=== PATIENT | female | born 1955 | race African-American/Black ===

== ENCOUNTER 2021-11-20 15:45 | Emergency (ER) | payer MEDICARE, OTHER ==
[~2021-11-20] VITALS: Ht 175.3 cm; Wt 81.0 kg
[2021-11-20 16:08] VITALS: BP 137/91
[2021-11-20] MEDS ORDERED: ACETAMINOPHEN 325MG TABLET PO ONE (21:30)
[2021-11-20 23:16] LABS: BASOPHILS % 0.5 % (0.0-2.0); EOSINOPHILS % 1.2 % (0.0-5.0); HEMATOCRIT. 36.3 % (36.0-48.0); HEMOGLOBIN. 11.6 g/dL (12.0-16.0); LYMPHOCYTES % 31.6 % (20.0-50.0); MEAN CORPUSCULAR HEMOGLOBIN 25.5 pg (28.0-32.0); MEAN CORPUSCULAR VOLUME 79.9 fL (81.0-99.0); MEAN PLATELET VOLUME 7.2 fl (7.4-10.4); MONOCYTES % 8.4 % (2.0-8.0); NEUTROPHILS % 58.3 % (40.0-76.0); PLATELET 270 x1000/uL (130-400); RED BLOOD CELL COUNT 4.54 mill/uL (4.2-5.4); RED CELL DISTRIBUTION WIDTH 14.8 % (11.6-14.6)
[2021-11-21] MEDS ORDERED: T3 PO (00:26)
[2021-11-21] MEDS ORDERED: INSULIN LISPRO 100 UNITS/ML SUBCUT ONE (00:30)
[2021-11-21] MEDS ORDERED: BACITRACIN ZINC OINT UDPKT TOP ONE (01:15)
== END 2021-11-21 01:24 | disposition home or self-care (01) ==
LOC: ER 15:45
DX: M79.604 Pain in right leg (principal); R60.0 Localized edema; E11.65 Type 2 diabetes mellitus with hyperglycemia; Z98.890 Other specified postprocedural states
CPT/HCPCS: 36415; 73630; 80048; 82962; 85025; 93971; 96372; 99285; J1815

== ENCOUNTER 2022-04-29 09:27 | Emergency (ER) | payer MEDICARE, MEDICAID ==
[~2022-04-29] VITALS: Ht 180.3 cm; Wt 85.0 kg
[~2022-04-29 09:27] MED LIST: T3 PO
[2022-04-29 09:38] VITALS: BP 123/86
[2022-04-29] MEDS ORDERED: TRAM50TA3 MT (12:08)
== END 2022-04-29 13:11 | disposition home or self-care (01) ==
LOC: ER 09:27
DX: L97.519 Non-pressure chronic ulcer of other part of right foot with unspecified severity (principal); E11.9 Type 2 diabetes mellitus without complications; I10 Essential (primary) hypertension; Z90.49 Acquired absence of other specified parts of digestive tract; Z79.899 Other long term (current) drug therapy
CPT/HCPCS: 81025; 82962; 99282

== ENCOUNTER 2024-09-06 06:49 | Emergency (ER) | payer MEDICARE, MEDICAID ==
[~2024-09-06] VITALS: Ht 180.3 cm; Wt 85.2 kg
[~2024-09-06 06:49] MED LIST changes: +AMLO5TAB88 PO; +GABA-529 PO; +LANTUSUD SUBCUT; +MECL-217 PO; +PANT40TA51 PO; +TRAM50TA3 MT
[2024-09-06 06:51] VITALS: O2SAT 100
[2024-09-06 06:57] VITALS: BP 154/105; PULSE 92; RESP 16; TEMP 36.8; O2SAT 98
[2024-09-06] MEDS: MECLIZINE 25MG TABLET PO ONE (07:52)
[2024-09-06] MEDS: BACITRACIN 14GM TUBE TOP ONE (07:53)
[2024-09-06] MEDS ORDERED: BO1 TP (09:33)
== END 2024-09-06 10:59 | disposition home or self-care (01) ==
LOC: ER 06:49
DX: S20.319A Abrasion of unspecified front wall of thorax, initial encounter (principal); E11.9 Type 2 diabetes mellitus without complications; Z88.6 Allergy status to analgesic agent; Z79.899 Other long term (current) drug therapy; Z98.890 Other specified postprocedural states; X58.XXXA Exposure to other specified factors, initial encounter; Y93.89 Activity, other specified; Y92.89 Other specified places as the place of occurrence of the external cause; Y99.8 Other external cause status
CPT/HCPCS: 99283; J8597; 99282

== ENCOUNTER 2025-02-22 16:42 | Inpatient (IN) | payer MEDICARE, MEDICAID ==
[~2025-02-22] VITALS: Ht 180.3 cm; Wt 90.3 kg
[~2025-02-22 16:42] MED LIST changes: +BO1 TP
[2025-02-22 16:45] VITALS: O2SAT 98
[2025-02-22] MEDS ORDERED: VANCOMYCIN 1000MG/250ML 250 ML IV SCH (18:15)
[2025-02-22] MEDS: PIPERACILLIN/TAZO 3.375G/50ML 50 ML IV SCH (18:41)
[2025-02-22] MEDS: SODIUM CHLORIDE 0.9% 1,000 ML IV ONE (18:42)
[2025-02-22] MEDS: KETOROLAC 15MG/ML VIAL IV ONE (18:42)
[2025-02-22] MEDS: VANCOMYCIN 1GM/200ML PMX (BAXTER) IV SCH (19:10)
[2025-02-22] MEDS ORDERED: TRAMADOL 50MG TABLET PO PRN (20:15)
[2025-02-22] MEDS ORDERED: MAGNESIUM/ALUMINUM HYDROXIDE/SIMETHICONE 30ML UDC PO PRN (20:15)
[2025-02-22] MEDS ORDERED: DEXTROSE 50% WATER 50ML SYRINGE IV PRN (20:15)
[2025-02-22] MEDS ORDERED: ONDANSETRON HCL 4MG/2ML INJ IV PRN (20:15)
[2025-02-22] MEDS ORDERED: ACETAMINOPHEN 325MG TABLET PO PRN ×2 (20:15)
[2025-02-22] MEDS ORDERED: DIPHENHYDRAMINE 50MG/ML VIAL IV PRN (20:15)
[2025-02-22] MEDS ORDERED: CLONIDINE 0.1MG TABLET PO PRN (20:15)
[2025-02-22] MEDS ORDERED: HYDRALAZINE 10 MG in SODIUM CHLORIDE 0.9% 49.5 ML IV PRN (20:15)
[2025-02-22 20:22] LABS: BASOPHILS % 0.6 % (0.0-2.0); EOSINOPHILS % 1.9 % (0.0-5.0); HEMATOCRIT. 36.0 % (36.0-48.0); HEMOGLOBIN. 11.4 g/dL (12.0-16.0); LYMPHOCYTES % 38.7 % (20.0-50.0); MEAN PLATELET VOLUME 7.3 fl (7.4-10.4); MONOCYTES % 7.5 % (2.0-8.0); NEUTROPHILS % 51.3 % (40.0-76.0); PLATELET 237 x1000/uL (130-400); RED BLOOD CELL COUNT 4.46 mill/uL (4.2-5.4); RED CELL DISTRIBUTION WIDTH 15.4 % (11.6-14.6)
[2025-02-22] MEDS ORDERED: HYDRALAZINE 20MG/ML VIAL IV PRN ×2 (20:30)
[2025-02-22 20:35] LABS: CREATININE 1.6 mg/dL (0.6-1.0); UREA NITROGEN BLOOD 13 mg/dL (9-23)
[2025-02-22 20:37] LABS: ASPARTATE AMINOTRANSFERASE 18 IU/L (<34); BILIRUBIN DIRECT 0.2 mg/dL (<=3.0)
[2025-02-22 20:38] LABS: BILIRUBIN TOTAL 0.9 mg/dL (0.1-1.0); PROTEIN TOTAL 7.5 g/dL (6.0-8.3)
[2025-02-22 20:44] LABS: C REACTIVE PROTEIN HIGH SENS 39.14 mg/l (<1.00)
[2025-02-22] MEDS: BLOOD SUGAR DIAGNOSTIC STRIP TEST SCH (21:00)
[2025-02-22] MEDS: DOCUSATE SODIUM 100MG CAPSULE PO SCH (21:00)
[2025-02-22] MEDS: INSULIN LISPRO 100 UNITS/ML SUBCUT SCH (21:00)
[2025-02-22 21:04] LABS: ERYTHROCYTE SEDIMENTATION RATE 62 mm/hr (0-30)
[2025-02-22 21:17] VITALS: O2SAT 100
[2025-02-22] MEDS: GABAPENTIN 100MG CAPSULE PO SCH (22:00)
[2025-02-22] MEDS: INSULIN GLARGINE 100 UNITS/ML SUBCUT SCH (22:00)
[2025-02-22] MEDS: ZOLPIDEM TARTRATE 5MG TABLET PO PRN (22:34)
[2025-02-22] MEDS: PANTOPRAZOLE 40MG DR TABLET PO SCH (22:34)
[2025-02-22] MEDS: SODIUM CHLORIDE 0.9% 3ML FLUSH IVF SCH (22:35)
[2025-02-22 23:18] VITALS: BP 126/81; PULSE 83; RESP 20; TEMP 36.1956
[2025-02-23] VITALS: RESP 18
[2025-02-23] MEDS: DEXT 5%/0.45% NACL 1000ML 1,000 ML IV SCH (00:36)
[2025-02-23] MEDS: POTASSIUM CHLORIDE 20MEQ TABLET SR PO NR (00:38)
[2025-02-23] MEDS: VANCOMYCIN 750MG/150ML (BAXTER) IV SCH (01:02)
[2025-02-23] MEDS: PIPERACILLIN/TAZO 3.375G/50ML 50 ML IV SCH (03:56)
[2025-02-23] MEDS: KETOROLAC 15MG/ML VIAL IV PRN (03:57)
[2025-02-23 04:00] VITALS: BP 156/83; PULSE 81; RESP 20; TEMP 36.2
[2025-02-23 05:18] LABS: INR 1.0
[2025-02-23 08:00] VITALS: BP 141/68; PULSE 82; RESP 17; TEMP 35.7
[2025-02-23] MEDS: AMLODIPINE 5MG TABLET PO SCH (10:10)
[2025-02-23] MEDS: ENOXAPARIN 40MG/0.4ML SYR SUBCUT SCH (10:11)
[2025-02-23 12:00] VITALS: BP 144/72; PULSE 79; RESP 18; TEMP 36.2
[2025-02-23] MEDS: VANCOMYCIN 1GM/200ML PMX (BAXTER) IV SCH (21:42)
[2025-02-24 08:05] LABS: CREATININE 1.8 mg/dL (0.6-1.0)
[2025-02-24 08:06] LABS: UREA NITROGEN BLOOD 11.0 mg/dL (9-23)
== END 2025-02-24 08:14 | disposition left against medical advice (07) | DRG 638 ==
LOC: ER 16:42 → 6EST 20:40 → EDBEDREQ 20:42 → EDBEDREQTM 20:42 → EDBEDREQ 20:44 → ENRESERV 21:10
PROVIDERS: ADMIT Internal Medicine; ATTEND Internal Medicine
DX: E11.621 Type 2 diabetes mellitus with foot ulcer (principal); L97.319 Non-pressure chronic ulcer of right ankle with unspecified severity; E11.40 Type 2 diabetes mellitus with diabetic neuropathy, unspecified; I10 Essential (primary) hypertension; E11.628 Type 2 diabetes mellitus with other skin complications; Z53.29 Procedure and treatment not carried out because of patient's decision for other reasons; Z88.6 Allergy status to analgesic agent; Z83.3 Family history of diabetes mellitus; Z79.82 Long term (current) use of aspirin; Z79.899 Other long term (current) drug therapy
CPT/HCPCS: 36415; 71045; 73630; 73700; 80048; 80076; 80202; 82962; 83735; 85025; 85651; 86141; 93005; 99285; A4606; A6449; J1650; J1815; J1885; J2543; J3373; J7030